=== PATIENT | female | born 2000 | race Hispanic/Latino ===

== ENCOUNTER 2020-07-23 23:07 | Emergency (ER) | payer BC ==
[2020-07-24] LABS: BASOPHILS % (AUTO) 0.3 % (0.0-5.0); EOSINOPHILS % (AUTO) 0.7 % (0.0-8.0); HEMATOCRIT 39.3 % (36-48); LYMPHOCYTES % (AUTO) 34.7 % (21.0-51.0); MEAN CORPUSCULAR HEMOGLOBIN 28.3 pg (27.0-33.0); MEAN CORPUSCULAR HGB CONC 33.6 g/dL (32.0-36.0); MEAN CORPUSCULAR VOLUME 84.3 fL (79-99); MONOCYTES % (AUTO) 7.2 % (3.0-13.0); NEUTROPHILS % (AUTO) 56.9 % (40.0-77.0); PLATELET COUNT (AUTO) 274 K/uL (130-400); RED BLOOD CELL COUNT(AUTO) 4.66 MIL/uL (4.00-5.50); RED CELL DISTRIBUTION WIDTH 12.2 % (11.0-15.5)
[2020-07-24 00:12] LABS: CREATININE 0.6 mg/dL (0.5-1.5); POTASSIUM 3.7 mmol/L (3.5-5.1)
[2020-07-24] MEDS ORDERED: PANTOPRAZOLE 40 MG/VIAL ONE (00:16)
[2020-07-24] MEDS ORDERED: METOCLOPRAMIDE 10 MG/2 ML VIAL ONE (00:16)
[2020-07-24] MEDS ORDERED: ONDANSETRON HCL 4 MG/2 ML VIAL ONE (00:16)
[2020-07-24 00:17] LABS: ALBUMIN 3.7 g/dL (3.5-5.0); BILIRUBIN,TOTAL 3.8 mg/dL (0.2-1.0); TOTAL PROTEIN, SERUM 8.5 g/dL (6.0-8.3)
[2020-07-24] MEDS ORDERED: FAMOTIDINE/PF 20 MG/2 ML VIAL IV ONE (00:17)
[2020-07-24 01:13] LABS: APPEARANCE,URINE Clear (CLEAR); BILIRUBIN,URINE Negative (NEGATIVE); COLOR,URINE Yellow (YELLOW); GLUCOSE, URINE (UA) Negative (NEGATIVE); KETONES,URINE Negative (NEGATIVE); LEUKOCYTE ESTERASE ,URINE Trace (NEGATIVE); NITRATE,URINE Negative (NEGATIVE); OCCULT BLOOD,URINE Negative (NEGATIVE); PH,URINE 6.5 (5.0-8.0); PROTEIN,URINE Negative (NEGATIVE); UROBILINOGEN,URINE 0.2 mg/dL (0.2-1.0)
[2020-07-24 01:25] LABS: BACTERIA,URINE None Seen /HPF (None Seen); RBC,URINE None Seen /HPF (0-1); WBC,URINE 0-1 /HPF (0-1)
[2020-07-24 01:26] LABS: HCG,QUAL RESULT NEGATIVE (NEGATIVE)
== END 2020-07-24 02:31 | disposition home or self-care (01) ==
LOC: EDH 23:07
DX: K80.20 Calculus of gallbladder without cholecystitis without obstruction (principal); K80.80 Other cholelithiasis without obstruction; E86.0 Dehydration; K83.9 Disease of biliary tract, unspecified
CPT/HCPCS: 36415; 71045; 76705; 80053; 81001; 81025; 83690; 84484; 85025; 96361; 96374; 96375; 99285; C9113; J2405; J2765; J3490; J7030

== ENCOUNTER → 2022-05-01 | Outpatient (CLI) | payer BC | END | disposition home or self-care (01) | LOC: RAH 14:13 | PROVIDERS: ATTEND Urology | DX: N32.81 Overactive bladder (principal) | CPT/HCPCS: 76770 ==